=== PATIENT | male | born 1960 | race Caucasian/White ===

== ENCOUNTER 2020-05-23 07:31 | Emergency (ER) | payer BC, SELFPAY ==
--- NOTE | ~2020-05-23 | XR_ITS ---
EXAMINATION: XR chest 1V portable DATE: 05/23/2020 08:22 INDICATION: Shortness of breath. Cough. TECHNIQUE: A single frontal view of the chest was obtained. COMPARISON: None. FINDINGS: The lungs are hyperexpanded with lucencies, consistent with emphysema. The chest demonstrat es clear lungs without pneumonia, pleural effusion, or pneumothorax. The heart size is normal. IMPRESSION: 1. Emphysema. Reviewed, dictated and finalized at location A. IMPRESSION: 1. Emphysema.
[2020-05-23 07:38] VITALS: BP 177/84; PULSE 75; RESP 18; TEMP 36.5; O2SAT 95
[2020-05-23 07:50] VITALS: O2SAT 95
--- NOTE | 2020-05-23 07:50 | ECG_ITS ---
Measurements Intervals [facility] Rate: 72 P: 60 KS: 153 QRS: -34 QRSD: 104 T: 69 QT: 399 QTc: 438 Interpretive Statements SINUS RHYTHM POSSIBLE LEFT ATRIAL ENLARGEMENT LEFT AXIS DEVIATION INCOMPLETE RIGHT BUNDLE BRANCH BLOCK BASELINE ARTIFACT- I, AVR, AVL BORDERLINE ECG Electronically Signed On 05-23-2020 8:07:56 CDT by Nelson Finley D.O.
--- NOTE | 2020-05-23 07:52 | ED.GENADULT ---
HPI - General Adult General Chief complaint: Upper Respiratory Infection Stated complaint: URI Time Seen by Provider: 05/23/20 07:44 Source: patient Mode of arrival: ambulatory Limitations: no limitations History of Present Illness HPI narrative: Patient is a 59 y/o male complaining of SOB for 1 week. He states that initially his SOB was mild, but this morning he was severely shortness of breath. He has been having running nose, congestion and dry cough for 1 week. He also had some chest tightness and sweating this morning. He felt like he was going to pass out, but did not actually pass out. He denies any fever. Related Data Home Medications Medication Instructions Recorded Confirmed lisinopril 20 mg tablet 40 mg PO DAILY tablet 10/29/19 terazosin 2 mg capsule 2 mg PO DAILY 10/29/19 verapamil 240 mg 24 hr 240 mg PO BID cap 10/29/19 capsule,extended release Allergies Allergy/AdvReac Type Severity Reaction Status Date / Time bacitracin Allergy Unknown rash Verified 05/23/20 07:42 neomycin Allergy Unknown Rash Verified 05/23/20 07:42 polymyxin B Allergy Unknown Rash Verified 05/23/20 07:42 Review of Systems Constitutional: Constitutional: Denies chills, Reports excessive sweating, Denies fever(s), Denies headache(s) and Reports weakness Eyes: Eyes: Denies blurry vision ENT: Denies headache(s), Reports nasal congestion, Reports nasal discharge and Denies neck pain Cardiovascular: Cardiovascular: Reports chest pain and Reports dyspnea Respiratory: Respiratory: Reports cough and Reports dyspnea Gastrointestinal: Gastrointestinal: Denies abdominal pain, Denies diarrhea, Denies nausea and Denies vomiting Genitourinary: Genitourinary: Denies hematuria and Denies dysuria Musculoskeletal: Musculoskeletal: Denies back pain and Denies neck pain Neurologic: Denies headache(s) and Denies weakness [facility] Past Medical History Medical History BPH loc w urin obs/LUTS HTN (hypertension), benign Surgical History Surgical History History of back surgery Family History Family History Father Heart disease Father Patient's father is Acute myocardial infarction Social History Social History Smoking packs per day: 1 Smoking cigarettes per day: 20.0 Years smoked: 40 Smoking pack-years: 40.00 Smoking status: Current every day smoker Tobacco type: cigarettes Second hand tobacco smoke exposure: Yes Alcohol intake: current Drinks per week: 20 Substance use: never Substance use type: does not use 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 Gender identity (if verbalized by the patient): Male Exam Const: General: no acute distress and well developed Orientation/consciousness: oriented to person, oriented to place, oriented to time and patient oriented x3 HENMT: Head: normocephalic Ears: external ears normal General nose exam: Normal external nose present Eyes: General: appearance normal, both eyes and all related structures Conjunctivae: conjunctivae normal Neck: Neck: normal visual inspection and full ROM Chest: Chest palpation & inspection: normal inspection of the chest and no tenderness Resp: Effort & Inspection: normal respiratory effort and able to speak in complete sentences Cardio: Rate: regular rate Rhythm: regular rhythm GI: GI Palp: No abdominal tenderness and Yes Soft to palpation Skin: General skin exam: normal color and turgor normal Neuro: General: oriented to person, oriented to place, oriented to time and patient oriented x3 Cognition (Neuro): normal cognition Extrem: General: normal to inspection, full ROM and no pedal edema Psych: Appearance: grossly normal Mental Status: mental status grossly normal Affect: norm
[2020-05-23 08:15] LABS: Basophils Percent Auto 0.1 % (0.2-1.2); Eosinophils Percent Auto 0.1 % (0-4.4); Hematocrit 45.1 % (42.0-52.0); Hemoglobin 16.7 g/dL (14.0-18.0); Immature Granulocyte Absolute 0.03 K/mm3 (0.00-0.031); Immature Granulocyte Percent A 0.4 % (0-0.5); Lymphocytes Absolute Auto 1.05 K/mm3 (0.9-3.2); Lymphocytes Percent Auto 13.6 % (18.3-44.2); Mean Corpuscular Hemoglobin 33.7 pg (26-34); Mean Corpuscular Volume 90.9 fl (80-100); Mean Platelet Volume 8.8 fl (7.4-10.4); Monocytes Absolute Auto 0.5 K/mm3 (0.1-0.6); Monocytes Percent Auto 6.1 % (2.6-8.5); Neutrophils Absolute Auto 6.1 K/mm3 (1.3-6.7); Neutrophils Percent Auto 79.7 % (45.5-73.1); Platelet Count Result 271 k/mm3 (150-375); Red Blood Count 4.96 M/mm3 (4.6-6.20); Red Cell Distribution Width 12.1 % (11.5-14.5); White Blood Count 7.7 K/mm3 (4.5-10.0)
[2020-05-23 08:36] LABS: Alanine Aminotransferase 18 U/L (4-50); Albumin Level 4.6 g/dL (3.5-5.1); Alkaline Phosphatase 90 U/L (38-126); Anion Gap 7 mmol/L (8-16); Aspartate Amino Transferase 28 U/L (17-59); Bilirubin,Total 0.5 mg/dL (0.2-1.3); Blood Urea Nitrogen 11 mg/dL (9-20); Calcium 9.1 mg/dL (8.4-10.2); Carbon Dioxide 24 mmol/L (22-30); Chloride 99 mmol/L (98-107); Estimated CRCL calculation 86 ml/min; Estimated Glomerular Filt Rate > 60; Glucose 157 mg/dL (75-110); Potassium 4.3 mmol/L (3.4-5.0); Sodium 130 mmol/L (137-145)
[2020-05-23 08:47] LABS: NT Pro B Type Natriuretic Pept 177 PG/ML (5-100); Troponin I < 0.012 ng/mL (0.000-0.034)
[2020-05-23] MEDS: SODIUM CHLORIDE 0.9% IV 1,000 ML 999 ML IV CONT (09:56)
[2020-05-23] MEDS: ALBUTEROL SULFATE (*SP) AEROSOL 1 PUFF 2 PUFF INHALATION (09:59)
[2020-05-23 10:34] VITALS: BP 160/85; PULSE 59; RESP 17; O2SAT 95
[2020-05-23 11:38] LABS: D Dimer 0.33 ug/mL (<0.48)
[2020-05-23 12:11] LABS: Troponin I < 0.012 ng/mL (0.000-0.034)
[2020-05-23 12:30] VITALS: BP 154/80; PULSE 66; RESP 18; TEMP 36.6; O2SAT 98
[2020-05-24 12:10] LABS: SARS-CoV-2 RNA PCR Negative
== END 2020-05-23 13:16 | disposition home or self-care (01) ==
PROVIDERS: Emergency Provider Emergency Medicine; PCP Family Medicine
DX: J06.9 Acute upper respiratory infection, unspecified (principal); J44.9 Chronic obstructive pulmonary disease, unspecified; R07.9 Chest pain, unspecified; Z20.828 Contact with and (suspected) exposure to other viral communicable diseases; N40.0 Benign prostatic hyperplasia without lower urinary tract symptoms; F17.210 Nicotine dependence, cigarettes, uncomplicated; I45.10 Unspecified right bundle-branch block; R94.31 Abnormal electrocardiogram [ECG] [EKG]
CPT/HCPCS: 36415; 71045; 80053; 83880; 84484; 85025; 85380; 87635; 93005; 96360; 96361; 99284; A9270; C9803; J7030; U0003

== ENCOUNTER → 2021-10-27 07:18 | Outpatient (CLI) | payer BC, SELFPAY ==
[2021-10-27 14:23] LABS: Influenza A QL RT-PCR Negative (Negative); Influenza B QL RT-PCR Negative (Negative)
[2021-10-27 21:12] LABS: SARS-CoV-2 RNA PCR Negative
== END ==
PROVIDERS: PCP Family Medicine; Visit Provider Physician Assistant
DX: R05.9 Cough, unspecified (principal); R09.89 Other specified symptoms and signs involving the circulatory and respiratory systems; Z20.822 Contact with and (suspected) exposure to COVID-19
CPT/HCPCS: 87502; C9803; U0003; U0005

== ENCOUNTER 2023-01-09 07:28 | Outpatient (CLI) | payer BC, SELFPAY ==
--- NOTE | ~2023-01-09 | XR_ITS ---
EXAMINATION: XR chest 2V DATE: 01/09/2023 07:49 INDICATION: Productive cough and shortness of breath TECHNIQUE: PA and lateral views of the chest are obtained. COMPARISON: 05/23/2020 FINDINGS: The lungs are free of acute opacities. No pleural effusion or pneumothorax. The cardiomedia stinal silhouette is normal. There is mild thoracic spondylosis. IMPRESSION: 1. No acute cardiopulmonary abnormality. Reviewed, dictated and finalized at location L.
== END 2023-01-09 07:29 | disposition home or self-care (01) ==
LOC: ANHIMG 07:32
PROVIDERS: PCP Family Medicine; Visit Provider Physician Assistant
DX: R05.9 Cough, unspecified (principal)
CPT/HCPCS: 71046

== ENCOUNTER 2023-10-05 07:04 | Outpatient (CLI) | payer OTHER, SELFPAY ==
[2023-10-05 08:04] LABS: Influenza A QL RT-PCR Negative (Negative); Influenza B QL RT-PCR Negative (Negative); RSV RNA, RT-PCR Negative (Negative); SARS-CoV-2 RNA PCR Positive (Negative)
== END 2023-10-05 07:05 | disposition home or self-care (01) ==
PROVIDERS: PCP Family Medicine; Visit Provider Physician Assistant Medical
DX: U07.1 COVID-19 (principal); R05.9 Cough, unspecified; R50.9 Fever, unspecified
CPT/HCPCS: 87637

== ENCOUNTER 2024-10-06 08:34 | Outpatient (CLI) | payer OTHER, SELFPAY ==
--- NOTE | 2024-10-06 08:54 | ECG_ITS ---
Test Date: 2024-10-06 08:59:47 Measurements Intervals [facility] Rate: 85 P: 69 MN: 159 QRS: 27 QRSD: 109 T: 78 QT: 394 QTc: 469 Interpretive Statements SINUS RHYTHM POSSIBLE LEFT ATRIAL ENLARGEMENT [-0.1mV P-WAVE IN V1/V2] No previous ECG available for comparison Electronically Signed On 10-06-2024 18:13:52 YARDAGE CONTROL OPERATOR by Shelia Staley M.D.
== END 2024-10-06 08:35 | disposition home or self-care (01) ==
PROVIDERS: PCP Family Medicine; Visit Provider Podiatrist Foot & Ankle Surgery
DX: Z01.818 Encounter for other preprocedural examination (principal); I10 Essential (primary) hypertension
CPT/HCPCS: 93005

== ENCOUNTER 2025-02-03 07:56 | Outpatient (CLI) | payer OTHER, SELFPAY ==
--- NOTE | ~2025-02-03 | US_ITS ---
Ultrasound of the Abdominal Aorta INDICATION: Nicotine dependence, screening for abdominal aortic aneurysm TECHNIQUE: Grayscale, color Doppler, and pulsed Doppler images of the aorta and common iliac arteries were obtained. COMPARISON: None. FINDINGS: Maximum vascular dimensions are as follows: Proximal aorta: 2.1 cm Mid aorta: 1.7 cm Distal aorta: 1.5 cm Right common iliac artery: 0.6 cm Left common iliac artery: 0.6 cm There is no evidence of abdominal aortic aneurysm. IMPRESSION: No evidence for abdominal aortic aneurysm. Reviewed, dictated and finalized at location M.
--- NOTE | ~2025-02-03 | CT_ITS ---
CT Scan of the Chest without Contrast: Clinical Indication: Lung cancer screening, nicotine dependence Technique: Contiguous sections were acquired throughout the chest without intravenous contrast. Dose reduction technique was used on this scan by utilizing automated exposure control and iterative recon struction technique. The dose-length product (DLP) was 76.94 mGy-cm. Findings: There is no evidence of any significant mediastinal, hilar or axillary lymphadenopathy. Coronary calc ifications are present. There is no evidence of pleural or pericardial effusion. There is moderate emphysema and biapical scarring. No suspicious pulmonary nodule. Images through the upper abdomen reveal no abnormalities. Impression: Lung RADS 1: Negative. 12 month follow-up screening CT advised. Reviewed, dictated and finalized at location . Impression: Lung RADS 1: Negative. 12 month follow-up screening CT advised.
--- OUTSIDE RECORDS SUMMARY | 2025-02-03 08:03 | XMS_ITS | Clinical Summary ---
Author Organization [facility] Address Counts include 234 beds at the [facility] [place] [address] Care Team Providers Care Applications Support Analyst Name Role Phone Jame Lyles MD Primary Care Provider [phone] Antonio Rowland MD Unavailable [phone] Allergies Active Allergy Reactions Criticality Noted Date Comments Bacitracin Rash Low 09/01/2015 Neomycin Unknown 05/03/2018 Bacitracin-Polymyxin B Unknown 05/03/2018 Medications aspirin 81 MG tablet Take 1 tablet (81 mg total) by mouth daily. 8 Active zoster vaccine (SHINGRIX) injectionIndicat ions:Need for shingles vaccine One dose now, repeat in 2-6 months 0.5 mL 1 9 Active TERAZOSIN 2 MG capsuleIndicatio ns:Essential hypertension TAKE 1 CAPSULE BY MOUTH AT BEDTIME 90 capsule 3 9 Active verapamil SR 240 MG tabletIndication s:Essential hypertension Take 1 tablet (240 mg total) by mouth 2 (two) times daily. 180 tablet 3 0 Active lisinopril 20 MG tabletIndication s:Essential hypertension Take 2 tablets (40 mg total) by mouth daily. Patient MUST be seen for further refills 14 tablet 1 Active Additional Information Patient not taking.Reported on 12/10/2023 budesonide (PULMICORT) 0.5 MG/2ML nebulizer solution Add 1 vial to 250ml of saline in rinse bottle. Irrigate sinuses with 120ml through each nostril twice daily 3 Active ciprofloxacin (CILOXAN) 0.3 % ophthalmic solution 3 Active hydroCHLOROthiaz danny (HYDRODIURIL) 25 MG tablet Take 1 tablet (25 mg total) by mouth daily. Active ipratropium (ATROVENT) 0.03 % nasal spray 3 Active ketorolac (ACULAR) 0.5 % ophthalmic solution 3 Active prednisoLONE acetate (PRED FORTE) 1 % ophthalmic suspension 3 Active lisinopril (PRINIVIL) 40 MG tablet Take 1 tablet (40 mg total) by mouth daily. 3 Active albuterol sulfate HFA 108 (90 Base) MCG/ACT inhaler Inhale 2 puffs into the lungs every 4 (four) hours as needed. 4 Active BREO ELLIPTA 200-25 MCG/ACT inhaler Inhale 1 puff into the lungs daily. 4 Active losartan (COZAAR) 25 MG tablet Take 1 tablet (25 mg total) by mouth daily. 4 Active Active Problems Problem Noted Date Diagnosed Date Tobacco abuse 08/12/2018 Lumbar disc herniation 08/10/2015 Lumbar stenosis 08/10/2015 Acquired hallux rigidus of right foot 07/21/2015 Pes cavus 06/23/2015 Enlarged prostate without lo wer urinary tract symptoms (luts) 12/15/2014 Essential hypertension Immunizations Immunization Administration Dates Next Due Influenza (Generic) 07/21/2016,08/06/2015,2013 Influenza Adult (Generic) 08/01/2019,07/02/2018, 08/04/2017 Shingrix 08/01/2019 Family History Medical History Relation Comments Hypertension Brother 1 Heart Attack Father Heart Disease Father Stent Cardiac Father Alzheimer's disease Maternal Grandmother Hypertension Maternal Grandmother Relation Status Comments Brother 1 Alive Brother 2 Alive Father (Age 59) Maternal Grandfather Maternal Grandmother Mother Alive Paternal Grandfather Paternal Grandmother Social History Tobacco Use Types Packs/Day Years Used Date Smoking Tobacco: Every Day Cigarettes Smokeless Tobacco: Never Tobacco Cessation:Ready to Q uit: No Alcohol Use Standard Drinks/Week Comments Yes 11.7 (1 standard drink = 0.6 oz pure alcohol) AUDIT-C Answer Date Recorded Frequency of Alcohol Consumption 4 or more times a week 06/02/2019 Average Number of Drinks 5 or 6 019 Frequency of Binge Drinking Weekly 05/09 PHQ-2 Answer Date Recorded Patient Health Questionnaire-2 Score 0 12/10/2023 Sex and Gender Information Value Date Recorded Sex Assigned at Male 09/05/2018 10:07 AM WIRELESS COMMUNICATIONS ENGINEER Legal Sex Male 5:52 PM CDT Gender Identity Male 09/05/2018 10:07 AM WIRELESS COMMUNICATIONS ENGINEER Sexual Orientation Straight 09/05/2018 10 :07 AM WIRELESS COMMUNICATIONS ENGINEER 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 Not on file Not on file Not on file Last Filed Vital Signs Vital Sign Reading Time Taken Comments Blood Pressure 138/80 03/10/2024 10:56 AM CDT Pulse 66 03/10/2024 10:56 AM CDT Temperature - - Respiratory Rate 18 06/02/2019 8:40 AM CDT Oxygen Saturation 99% 03/10/2024 10:56 AM CDT Inhaled Oxygen Concentration - - Weight 61.7 kg (136 lb) 03/10/2024 10:56 AM CDT Height 177.8 cm (5' 10 ) 06/02/2019 8:40 AM CDT Body Mass Index 19.51 06/02/2019 8:40 AM CDT Plan of Treatment Health Maintenance Due Date Last Done Comments Hepatitis C 1976 DTaP, Tdap and Td Vaccines (1 - Tdap) 1977 Pneumococcal Vaccine: 50+ Years (2 of 2 - PCV) 07/29/2021 07/29/2020 AAA SCREENING 2023 Annual Medicare Wellness Visit 2023 COVID-19 Vaccine ( season) 2024 08/02/2022, 09/09/2021, 12/28/2020, Additional history exists PHQ-2 (Physician [place]) 10/08/2024 12/10/2023 Colorectal Cancer Screening Colonoscopy (10 Years) 01/28/2029 01/28/2019 RSV Immunization or 60+ Years (1 - 1-dose 75+ series) 2033 Zoster Vaccines Completed 11/12/2019, 08/01/2019 Meningococcal B Vaccine Aged Out No l onger eligible based on patient's age to complete this topic Meningococcal Vaccine Aged Out No karina malgorzata eligible based on patient's age to complete this topic RSV Immunizations Under 20 Months Aged Out No longer eligible based on patient's age to complete this topic Procedures Procedure Name Priority Date/Time Associated Diagnosis Comments COLONOSCOPY GENERIC (SCAN ORDER) Routine 01/28/2019 from Last 3 Months or Most Recently Relevant to Health Maintenance Results * COLONOSCOPY (01/28/2019) us Documents Scanned SCANNING Final Result [facility] [address] [place] [address] from Last 3 Months or Most Recently Relevant to Health Maintenance Insurance [employer] Care Teams Applications Support Analyst Relationship Specialty Start Date End Date Jame Lyles MD [address] [place] [address] PCP - General 04/26/15 Antonio Rowland MD [facility]. [facility] [address] [place] [address] [place] Biomedical Engineering Director INTERVENTIONAL CARDIOLOGY 04/24/18
--- OUTSIDE RECORDS SUMMARY | 2025-02-03 08:03 | XMS_ITS | Encounter Summary ---
Author Organization [facility] Address [address] [place] [address] Care Team Providers Care Lead Mason Tender Name Role Phone Jame Lyles MD Primary Care Provider [phone] Antonio Rowland MD Unavailable [phone] Encounter Details Date Type Department Care Team (Late st Contact Info) Description 08/11/2017 Abstract NATHALIA CONVERSION [facility] [place], [place] [id number] , Generic ConversionMD Social History Tobacco Use Types Packs/Day Years Used Date Smoking Tobacco: Never Assessed Sex and Gender Information Value Date Recorded Sex Assigned at Male 09/05/2018 10:07 AM TRAVELING SALES REPRESENTATIVE Legal Sex Male 5:52 PM CDT Gender Identity Male 09/05/2018 10:07 AM TRAVELING SALES REPRESENTATIVE Sexual Orientation Straight 09/05/2018 10 :07 AM TRAVELING SALES REPRESENTATIVE documented as of this encounter Plan of Treatment Not on file documented as of this encounter Visit Diagnoses Not on filedocumented in this encounter Care Teams Lead Mason Tender Relationship Specialty Start Date End Date Jame Lyles MD [address] [place] [address] PCP - General 04/26/15 Antonio Rowland MD [facility]. [address] [place], [place] [id number] [place] [employer] INTERVENTIONAL CARDIOLOGY 04/24/18 documented as of this encounter
--- OUTSIDE RECORDS SUMMARY | 2025-02-03 08:03 | XMS_ITS | Patient Health Record ---
Author Organization [facility] ([address]) Address [address] [place] [address] Care Team Providers Care Endodontist Name Role Phone Robbin Thompson MD Primary Care Provider UnavailSangeeta Moncada Unavailable [phone] [facility], Provider Unavailable Unavailab le Allergies Allergen (clinical drug ingredient) Drug/Non Drug Allergy documented on EMR Reaction Allergy Type Onset Date Status neomycin Neomycin eye swelling after surgery Drug Allergy Active Results Component Value Reference Range Notes Spirometry Reviewed date: Interpretation:Abnormal Performing Lab: Notes/Report: Abnormal SpiroPreBronchodilator_FVC 2.88 SpiroPostBronchodilator_FEF25_75 0 SpiroPreBronchodilator_FEF25_75 1.84 SpiroPreBronchodilator_FEV1 2.17 SpiroPrecentPredictionPost_FEF25_75 0 SpiroPrecentPredictionPost_FEV1 0 SpiroPrecentPredictionPost_FEV1_OVER_FVC 0 SpiroPrecentPredictionPost_FVC 0 SpiroPrecentPredictionPre_FEF25_75 57.5 SpiroPrecentPredictionPre_FEV1 62.7 SpiroPrecentPredictionPre_FEV1_OVER_FVC 96.9 SpiroPrecentPredictionPre_FVC 64.7 SpiroPredicted_FEF25_75 3.2 SpiroPreBronchodilator_FEV1_OVER_FVC 75.29 SpiroPreBronchodilator_PEF 3.69 SpiroPostBronchodilator_FVC 0 SpiroPostBronchodilator_FEV1 0 SpiroPostBronchodilator_FEV1_OVER_FVC 0 SpiroPostBronchodilator_PEF 0 SpiroPredicted_FVC 4.45 SpiroPredicted_FEV1 3.46 SpiroPredicted_FEV1_OVER_FVC 77.67 SpiroPredicted_PEF 8.17 Reason For Referral Reason J31.0 Referring Provider First Name Robbin Referring Provider Last Name Jay Referring Provider Speciality Counts include 234 beds at the [facility] Referred Organization [facility] Referred Provider Sangeeta Valentin Referred Address [address],[place], [place],[address],[place] Referred Provider Specialty Allergy/Immu nology Referral Priority Routine Medications Medication SIG (Take, Route, Frequency, Duration) Notes Start Date End Date Status Advair Diskus 500-50 MCG/ACT 1 puff Inhalation Twice a day for 30 days 12/25/2024 Active AZELASTINE NASAL 137 mcg/inh 2 spray(s) intranasally 2 times a day for 30 days Active IPRATROPIUM NASAL 42 mcg/inh 2 spray(s) intranasally 4 times a day for 30 days Active Breo Ellipta 200 MCG-25 MCG/INH 1 PUFF(S) INHALED ONCE A DAY for 30 DAYS *Please review and pick correct strength-formula tion from [email or web address] options. If intended option is not shown, discontinue and re-order from Quick Search* Not-Taking Trelegy Ellipta 200-62.5-25 MCG/ACT 1 puff Inhalation Once a day for 30 days 12/10/2024 Active Breo Ellipta 200-25 MCG/ACT 1 puff Inhalation Once a day for 30 days 12/10/2024 Active Aspirin 81 MG 1 tab(s) orally once a day Active Albuterol Sulfate HFA 108 (90 Base) MCG/ACT 2 puffs as needed Inhalation every 4 hrs for 30 days 12/10/2024 Active hydroCHLOROthiazide 25 MG 1 tab(s) orally once a day Active Azelastine HCl 137 MCG/SPRAY 2 spray(s) intranasally 2 times a day for 30 days Active Albuterol Sulfate HFA 108 (90 Base) MCG/ACT 2 puff(s) inhaled every 6 hours Active Ipratropium [place] 0.06 % 2 spray(s) intranasally 4 times a day for 30 days 11/27/2023 Active Terazosin HCl 2 MG 1 cap(s) orally once a day (at bedtime) Active Verapamil HCl ER 240 MG 1 cap(s) orally once a day Active Social History Tobacco Use: Social History Observation Description Date Details (start date - stop date) Current Smoker NA - NA Tobacco Control (Standard) Question Answer Notes Tobacco use: Current smoker How often do you smoke cigarettes? Every day How many cigarettes a day do you smoke? 11-20 How soon after you wake up d o you smoke your first cigarette? 6-30 minutes Are you interested in quitting? Not ready to frances t Additional Findings: Tobacco user Modera te cigarette smoker (10-19 cigs/day) Problems Problem Type SNOMED Code ICD Code Onset Dates Problem Status W/U Status Risk Notes Problem Tobacco user (500093023) Nicotine dependence, cigarettes, uncomplicated (F17.210) Active confirmed Problem Chronic rhinitis (60840998) Chronic rhinitis (J31.0) Active confirmed Problem Uncomplicated moderate persistent asthma (107751017) Moderate persistent asthma, uncomplicated (J45.40) Active confirmed Vital Signs Oximetry 99 % 12/10/2024 Blood pressure diastolic 73 mm Hg 12/10/2024 Height 69 in 12/10/2024 Blood pressure systolic 156 mm Hg 12/10/2024 Weight 139.4 lbs 12/10/2024 BMI 20.58 kg/m2 12/10/2024 Encounters Encounter Location Date Provider Diagnosis [address] [address] 03/22/2024 Provider [facility] Chronic rhinitis J31.0 and Moderate persistent asthma, uncomplicated J45.40 [facility] [employer] [address] [address] 12/10/2024 Sangeeta Valentin Chronic rhinitis J31.0 ; Moderate persistent asthma, uncomplicated J45.40 ; Shortness of breath R06.02 and Tobacco use Z72.[address] [address] 12/05/2024 Sangeeta Valentin [address] [address] 12/10/2024 Sangeeta Valentin [facility] [employer] [address] [address] 12/25/2024 Sangeeta Valentin Assessments Encounter Date Diagnosis (ICD Code) Assessment Notes Treatment Notes Treatment Clinical Notes Section Notes 03/22/2024 Chronic rhinitis (ICD-10 - J31.0) 03/22/2024 Moderate persistent asthma, uncomplicated (ICD-10 - J45.40) 12/10/2024 Chronic rhinitis (ICD-10 - J31.0) Skin testing was negative for aeroallergens. We discussed non allergic rhinitis including trigger factors of strong odors and changes in barometric pressure. Continue Astepro 2 sprays BID as needed 12/10/2024 Moderate persistent asthma, uncomplicated (ICD-10 - J45.40) Spirometry at his initial visit showed obstruction with FEV1 57% and significant [id number] post bronchodilator. ACT 14. Today, spirometry continues to show obstruction with FEV1 63%. Start Trelegy and continue prn albuterol. We discussed prednisone, but he does not feel that he needs further steroids at this time. He is scheduled for LDCT for lung cancer screening by PCP 12/10/2024 Shortness of breath (ICD-10 - R06.02) 12/10/2024 Tobacco use (ICD-10 - Z72.0) 12/10/2024 Other Plan Of Treatment Next Appt Details Provider Name:Sangeeta johnston, 03/18/2025 08:45:00 AM, [address] [facility], [address], [place], [address], Insurance Providers Payer Name Payer Address Payer Phone Subscriber Number Group Number Insured Name Patient Relationship to Insured Coverage Start Date Coverage End Date [facility] Medicare Advantage [address] [address] [place] [address] [id number] Og Trotter Self - patient is the insured 4 Medical (General) History Medical History History ICD Code Hypertension Surgical History Surgery Date(Month/Year) back surgery 1997 back surgery 1997 Hospitalization History Reason Date(Month/Year) pneumonia in childhood
--- OUTSIDE RECORDS SUMMARY | 2025-02-03 08:03 | XMS_ITS | Clinical Summary ---
Author Organization [facility] Address [address], [address] [address] Phone Care Team Providers Care Embryology Teacher Name Role Phone Robbin Thompson MD Primary Care Provider Allergies Active Allergy Reactions Criticality Noted Date Comments Neomycin-Bacitracin Zn-Polymyx Rash 10/04 Medications VERAPAMIL HCL PO Take 240 mg by mouth 2 times daily. Active lisinopril (PRINIVIL, ZESTRIL) 20 MG TabletIndication s:takes 2 tabs in AM Take 20 mg by mouth every morning. Indications : takes 2 tabs in AM Active aspirin EC 81 MG Tablet Delayed Response Take 81 mg by mouth daily. Active TERAZOSIN HCL PO Take 1 Tab by mouth nightly. Active hydroCHLOROthiaz danny 25 MG Tablet Take 25 mg by mouth every morning. Active other 1 Tablet by Other route daily. FIBER GUMMY Active Active Problems No known active problems Family History Medical History Relation Name Comments Heart Attack Father No Known Problems Mother Cancer Paternal Great-Grandfather c olon Relation Name Status Comments Father Mother Alive Paternal Great-Grandfather Social History Tobacco Use Types Packs/Day Years Used Date Smoking Tobacco: Every Day Cigarettes 1 30 Smokeless Tobacco: Never Tobacco Cessation:Ready to Q uit: No; Counseling Given: Yes Alcohol Use Standard Drinks/Week Comments Yes 20 (1 standard drink = 0.6 oz pu re alcohol) Sex and Gender Information Value Date Recorded Sex Assigned at Not on file Legal Sex Male 9:06 PM CDT Gender Identity Not on file Sexual Orientation Not on file Last Filed Vital Signs Vital Sign Reading Time Taken Comments Blood Pressure 133/78 05/24/2022 10:54 AM CDT Pulse 65 05/24/2022 10:54 AM CDT Temperature 36 C (96.8 F) 05/24/2022 10:54 AM CDT Respiratory Rate 18 05/24/2022 10:54 AM CDT Oxygen Saturation 99% 05/24/2022 10:54 AM CDT Inhaled Oxygen Concentration - - Weight 63.5 kg (140 lb) 05/24/2022 8:25 AM CDT Height 177.8 cm (5' 10 ) 05/24/2022 8:25 AM CDT Body Mass Index 20.09 05/24/2022 8:25 AM CDT Plan of Treatment Health Maintenance Due Date Last Done Comments Hepatitis C Virus (HCV) Screening 1960 TdaP Immunization 1960 Cologuard 2008 Immunochemical Fecal Occult Blood 2008 Pneumococcal Immunization (50+ years) (2 of 2 - PCV) 07/29/2021 07/29/2020 Influenza Immunization (#1) 06/08/202407/09, 07/29/2020, 08/01/2019, Additional history exists SARS-COV-2 Immunization ( season) 2024 09/09/2021, 12/28/2020, 11/17/2020 Colonoscopy 05/24/2027 05/24/2022, 01/07, 10/22/2018 Colorectal Cancer Screening 05/24/2027 Respiratory Syncytial Virus (RSV) Immunization (Adult) (1 - 1-dose 75+ series) 2033 05/24/2022, 01/07, 10/22/2018 Zoster Immunization Completed 11/12/2019, 9 Pneumococcal Immunization Combined Discontinued 07/29/2020 Hepatitis B Immunization Aged Out No longer eligible based on patient's age to complete this topic Meningococcal Immunization (ACWY) Aged Out No longer eligible based on patient's age to complete this topic Rotavirus Immunization Aged Out No lo nger eligible based on patient's age to complete this topic Insurance [facility] Care Teams Embryology Teacher Relationship Specialty Start Date End Date Robbin Thompson MD [address] [place] [address] PCP - General Family Medicine 05/17/22
--- OUTSIDE RECORDS SUMMARY | 2025-02-03 08:03 | XMS_ITS ---
Author Organization [facility] [place] ([address]) Address [address] [place] [address] Care Team Providers Care Medical Aides Teacher Name Role Phone Robbin Thompson MD Primary Care Provider UnavailSangeeta Moncada Unavailable [phone] REASON FOR VISIT Medication Medications Medication SIG (Take, Route, Frequency, Duration) Notes Start Date End Date Status Advair Diskus 500-50 MCG/ACT 1 puff Inhalation Twice a day for 30 days 12/25/2024 Active Encounters Encounter Location Date Provider Diagnosis [facility] [address] [place] [address] 12/25/2024 Sangeeta Valentin Plan Of Treatment Medication Medication Name Sig Start Date Stop Date Notes Advair Diskus 500-50 MCG/ACT 1 puff Inha lation Twice a day for 30 days 12/25/2024 Next Appt Details Provider Name:Sangeeta johnston, 03/18/2025 08:45:00 AM, [address] [facility], [address], [place], [address], Progress Notes * Og TROTTERDOB:1960 ([age] yo M)Acc No.[id number]:12/25/2024 Patient: Og BALES :1960 A ge:64 Y S ex:Male Address:[address] [place] [address] * Refills Start Advair Diskus Aerosol Powder Breath Activated, 500-50 MCG/ACT, Inhalation, 1, 1 puff, Twice a day, 30 days, Refills=5 * true * Date: Generated for Breanna mendieta/Isacc/Itz on: 0 02/03/2025 08:03 AM CDT
--- OUTSIDE RECORDS SUMMARY | 2025-02-03 08:03 | XMS_ITS ---
Author Organization [facility] [place] ([address]) Address [address] [place] [address] Care Team Providers Care Sales Agent Pest Control Service Name Role Phone Robbin Thompson MD Primary Care Provider Sangeeta Kincaid Unavailable [phone] Allergies Allergen (clinical drug ingredient) Drug/Non Drug [...] 4.45 SpiroPredicted_FEV1 3.46 SpiroPredicted_FEV1_OVER_FVC 77.67 SpiroPredicted_PEF 8.17 REASON FOR VISIT Asthma follow-up - recent flares, off Breo Medications Medication SIG (Take, Route, Frequency, Duration) Notes Start Date End Date Status AZELASTINE NASAL 137 mcg/inh 2 spray(s) intranasally 2 times a day for 30 days Active Ipratropium Circle 0.06 % 2 spray(s) intranasally 4 times a day for 30 days 11/27/2023 Active Terazosin HCl 2 MG 1 cap(s) orally once a day (at bedtime) Active IPRATROPIUM NASAL 42 mcg/inh 2 spray(s) intranasally 4 times a day for 30 days Active Verapamil HCl ER 240 MG 1 cap(s) orally once a day Active Breo Ellipta 200 MCG-25 MCG/INH 1 PUFF(S) INHALED ONCE A DAY for 30 DAYS *Please review and pick correct strength-formula tion from [employer] options. If intended option is not shown, discontinue and re-order from Quick Search* Not-Taking Aspirin 81 MG 1 tab(s) orally once a day Active hydroCHLOROthiazide 25 MG 1 tab(s) orally once a day Active Azelastine HCl 137 MCG/SPRAY 2 spray(s) intranasally 2 times a day for 30 days Active Albuterol Sulfate HFA 108 (90 Base) MCG/ACT 2 puff(s) inhaled every 6 hours Active Trelegy Ellipta 200-62.5-25 MCG/ACT 1 puff Inhalation Once a day for 30 days 12/10/2024 Active Albuterol Sulfate HFA 108 (90 Base) MCG/ACT 2 puffs as needed Inhalation every 4 hrs for 30 days 12/10/2024 Active Social History Tobacco Use: Social History [...] user Modera te cigarette smoker (10-19 cigs/day) Vital Signs Blood pressure systolic 156 mm Hg 12/11/19 25 Blood pressure diastolic 73 mm Hg 025 Height 69 in 12/10/2024 Weight 139.4 lbs 12/10/2024 BMI 20.58 kg/m2 12/10/2024 Oximetry 99 % 12/10/2024 Encounters Encounter Location Date Provider Diagnosis [facility] [address] [facility] [address] [place] [address] 12/10/2024 Sangeeta Valentin Chronic rhinitis J31 .0 ; Moderate persistent asthma, uncomplicated J45.40 ; Shortness of breath R06.02 and Tobacco use Z72.0 Assessments Encounter Date Diagnosis (ICD Code) Assessment Notes Treatment Notes Treatment Clinical Notes Section Notes 12/10/2024 Chronic rhinitis (ICD-10 - J31.0) Skin testing was negative for aeroallergens. We discussed non allergic rhinitis including trigger factors of strong odors and changes in barometric pressure. Continue Astepro 2 sprays BID as needed 12/10/2024 Moderate persistent asthma, uncomplicated (ICD-10 - J45.40) Spirometry at his initial visit showed obstruction with FEV1 57% and significant [id number] post bronchodilator. ACT 14. Today, spirometry continues [...] - Z72.0) 12/10/2024 Other Plan Of Treatment Medication Medication Name Sig Start Date Stop Date Notes AZELASTINE NASAL 137 mcg/inh 2 spray(s) intranasally 2 times a day for 30 days IPRATROPIUM NASAL 42 mcg/inh 2 spray(s) intranasally 4 times a day for 30 days Trelegy Ellipta 200-62.5-25 MCG/ACT 1 puff Inhalation Once a day for 30 days 12/10/2024 Albuterol Sulfate HFA 108 (9 0 Base) MCG/ACT 2 puffs as needed Inhalation every 4 hrs for 30 days 12/10/2024 Treatment Notes Assessment Notes Chronic rhinitis Skin testing was neg ative for aeroallergens. We discussed non allergic rhinitis including trigger factors of strong odors and changes in barometric pressure. Continue Astepro 2 sprays BID as needed Moderate persistent asthma, uncomplicate d Spirometry at his initial visit showed obstruction with FEV1 57% and significant [id number] post bronchodilator. ACT 14. Today, spirometry continues to show obstruction with FEV1 63%. Start Trelegy and continue prn albuterol. We discussed prednisone, but he does not feel that he needs further steroids at this time. He is scheduled for LDCT for lung cancer screening by PCP Next Appt Details Follow Up: 3 Months, Reason: Spirometry/Flow Volume Loop Provider Name:Sangeeta johnston, 03/18/2025 08:45:00 AM, [address] [facility], [address], [address], Progress Notes * Og TROTTERDOB:1960 ([age] yo M)Acc No.[id number]:12/10/2024 Progress Notes Patient: Og BALES Provider: Elenita Valentin MD :1960 A ge:64 Y S ex:Male Date:12/10/2024 Address:[address] [place], [place] [id number] Pcp:Robbin Thompson MD Subjective: * Chief Complaints: * A sthma follow-up - recent flares, off Breo * HPI: * Introduction: I had the pleasure of seeing Michlel Trotter, a 64 year old with HTN, ARC, and asthma p resenting for evaluation of asthma flare.? He is alone for today's visit. He was last evaluated 11-27-2023. ACT 14 and reports coughing, shortness of breath. He was treated with prednisone by Dr. Thompson a few weeks ago along [place]. He is feeling better, but cough is not resolved. Cough is productive of clear sputum. Also reports constant rhinorrhea. He ran out of Breo several months ago. He feels that the Breo helps out the cough. He is using albuterol twice a day. At his initial visit, he reported frequent rhinorrhea and cough. No post nasal drip or congestion. Above symptoms are occurring throughout the year without regard to season. No decrease in sense of smell. No recurrent sinusitis. He has cleaned the air ducts in his home without improvement. He has tried Zyrtec and Reina without improvement. He also tried Flonase. He was evaluated by ENT and does not remember the name of the ENT. Per his report, normal exam and started ipratropium 2 sprays BID and budesonide nasal rinses every other day with some improvement, No history of prednisone or hospitalization for respiratory symptoms. 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 Today, he reports no fevers, chills, night sweats or other constitutional symptoms,. * ROS: A LLERGY: Positive p er the HPI and history, otherwise unremarkable.? S PECIAL SENSES: Positve for n one. C ONSTITUTIONAL: Positive for n one. E NT: Positive p er the HPI and history, otherwise unremarkable.? R ESPIRATORY: Positive p er the HPI and history, otherwise unremakable.? O PHTHALMOLOGY: Positive for p er the HPI and history, otherwise unremarkable. E NDOCRINOLOGY: Positive for n one. C ARDIOLOGY: Positive for n one. G ASTROENTEROLOGY: Positive for n one. U ROLOGY: Positive for n one. D ERMATOLOGY: Positive for p er the HPI and history, otherwise unremakable. N EUROLOGY: Positive for n one. H EMATOLOGY/LYMPH: Positive for n one. M USCULOSKELETAL: Positive for n one. P SYCHOLOGY: Positive for n one. A ll other review of systems per the HPI and history, otherwise unremarkable. * Medical History: * Surgical History: b ack surgery 1997back surgery 1997 * Hospitalization/Major Diagno stic Procedure: p neumonia in childhood * Family History: F ather: , diagnosed with Allergic rhinitis due to allergen. M other: alive. 2 brother(s) - healthy. 1 son(s) , 1 daughter(s) - healthy. . * Social History: H ome description Basement: Y es Any water damage in basement? N o Do you own any pets? N o T obacco Control (Standard) Tobacco use: C urrent smoker How often do you smoke cigarettes? E very day How many cigarettes a day do you smoke? 1 1-20 How soon after you wake up do you smoke your first cigarette??6-30 minutes Are you interested in quitting? N ot ready to quit Additional Findings: Tobacco user M oderate cigarette smoker (10-19 cigs/day) * Medications: T akingAzelastine HCl 137 MCG/SPRAY Solution 2 spray(s) intranasally 2 times a day Albuterol Sulfate HFA 108 (90 Base) MCG/ACT Aerosol Solution 2 puff(s) inhaled every 6 hours Aspirin 81 MG Tablet Delayed Release 1 tab(s) orally once a day hydroCHLOROthiazide 25 MG Tablet 1 tab(s) orally once a day Terazosin HCl 2 MG Capsule 1 cap(s) orally once a day (at bedtime) Verapamil HCl ER 240 MG Capsule Extended Release 24 Hour 1 cap(s) orally once a day Ipratropium Circle 0.06 % Solution 2 spray(s) intranasally 4 times a day Taking Azelastine HCl 137 MCG/SPRAY Solution 2 spray(s) intranasally 2 times a day Taking Albuterol Sulfate HFA 108 (90 Base) MCG/ACT Aerosol Solution 2 puff(s) inhaled every 6 hours Taking Aspirin 81 MG Tablet Delayed Release 1 tab(s) orally once a day Taking hydroCHLOROthiazide 25 MG Tablet 1 tab(s) orally once a day Taking Terazosin HCl 2 MG Capsule 1 cap(s) orally once a day (at bedtime) Taking Verapamil HCl ER 240 MG Capsule Extended Release 24 Hour 1 cap(s) orally once a day Taking Ipratropium Circle 0.06 % Solution 2 spray(s) intranasally 4 times a day Not-Taking/PRNBreo Ellipta 200 MCG-25 MCG/INH POWDER 1 PUFF(S) INHALED ONCE A DAY , Notes to Pharmacist: *Please review and pick correct strength-formulation from [employer] options. If intended option is not shown, discontinue and re-order from Quick Search*Medication List reviewed and reconciled with the patientNot-Taking/PRN Breo Ellipta 200 MCG-25 MCG/INH POWDER 1 PUFF(S) INHALED ONCE A DAY , Notes to Pharmacist: *Please review and pick correct strength-formulation from [employer] options. If intended option is not shown, discontinue and re-order from Quick Search*Medication List reviewed and reconciled with the patient * Allergies: N eomycin: eye swelling after surgeryno[Allergies Verified] Objective: * Vitals: B P:156/73mm Hg, HR:72/min, Pulse Oximetry:99%, ACT:14, Ht: 69 in, Wt: 139.4 lbs, BMI:20.58Index. * Examination: G eneral examination: General appearance: p leasant, well-developed, well-nourished. HEENT: c onjunctiva are clear bilaterally, no tenderness to palpation of the sinuses, TM's without evidence of acute infection, turbinates with pink mucosa, clear rhinorrhea is present, no polyps noted, no septal perforation, posterior oropharynx is clear, no tongue swelling, and uvula is midline. Oral cavity: n ormal, no lesions. Neck, thyroid : s upple, non-tender, no anterior cervical lymphadenopathy. Breasts : n ot performed. Heart: R RR, S1-S2, no murmurs, no rubs, no gallops. Lungs: c lear to auscultation and percussion in all lung fulton, no wheezes or crackles. Neurologic exam: u nremarkable. Skin: n ormal, no rash, dermatographism, urticaria, angioedema. Peripheral pulses: n ormal (2+) bilaterally. Back: n ormal. Extremities: n ormal ROM, no clubbing, no cyanosis, no edema. Genitalia: n ot performed. Assessment: * Assessment: 1. M oderate persistent asthma, uncomplicated - J45.40 (Primary) 2 . C hronic rhinitis - J31.0 3 . S hortness of breath - R06.02 4 . T obacco use - Z72.0 Plan: * Treatment: Value Reference Range S piroPreBronchodilator_FVC 2.88 * S piroPreBronchodilator_FEF25_75 1.84 * S piroPreBronchodilator_FEV1 2.17 * S piroPrecentPredictionPre_FEF25_75 57.5 * S piroPrecentPredictionPre_FEV1 62.7 * S piroPrecentPredictionPre_FEV1_OVER_FVC 96.9 * S piroPrecentPredictionPre_FVC 64.7 * S piroPredicted_FEF25_75 3.2 * S piroPreBronchodilator_FEV1_OVER_FVC 75.29 * S piroPreBronchodilator_PEF 3.69 * S piroPredicted_FVC 4.45 * S piroPredicted_FEV1 3.46 * S piroPredicted_FEV1_OVER_FVC 77.67 * S piroPredicted_PEF 8.17 * FEV1 63% and reduced FVC. FV L with increase in curvilinearity. Impression: obstruction and possible restriction Notes: Spirometry at his initial visit showed obstruction with FEV1 57% and significant bdssyhm7qeal post bronchodilator. ACT 14. Today, spirometry continues to show obstruction with FEV1 63%. Start Trelegy and continue prn albuterol. We discussed prednisone, but he does not feel that he needs further steroids at this time. He is scheduled for LDCT for lung cancer screening by PCP??2.?Chronic rhinitis? Refill AZELASTINE NASAL spray, 137 mcg/inh, 2 spray(s), intranasally, 2 times a day, 30 days, 1, Refills 5;?Start IPRATROPIUM NASAL spray, 42 mcg/inh, 2 spray(s), intranasally, 4 times a day, 30days, 1, Refills 5.?? Notes: Skin testing was negative for aeroallergens. We discussed non allergic rhinitis including trigger factors of strong odors and changes in barometric pressure. Continue Astepro 2 sprays BID as needed?? * Procedure Codes: 9 6160 PT-FOCUSED HLTH RISK [id number] DOC MEDS VERIFIED W/PT OR [id number] RESPIRATORY FLOW VOLUME LOOP * Preventive Medicine: Counseling: M edication instruction: W atch for side effects of prescribed medications, Nasal steroid/antihistamine instruction: avoid septum. E ducation: G ENERAL EDUCATION: Our staff spent an additional 30 minutes in direct contact with the patient educating them on their current diagnoses and proper treatment and prevention of symptoms and the proper use of medications, Our staff discussed pulmonary function testing and results with the patient/family, Our staff formulated an asthma action plan with the patient/family, Our staff reviewed the patient's asthma action plan. P atient education material sent to portal? Y es B P Management: PRE-HYPERTENSIVE FOLLOW-UP PLAN: F ollow-up 1 month REFERRAL TO ALTERNATIVE / PRIMARY CARE PROVIDER: R eferral to general practitioner * Follow Up: 3 Months (Reason: Spirometry/Flow Volume Loop) * Billing Information: * Visit Code: 29920 Office Visit, Est Pt., Level 4. Modifiers: 25 * Procedure Codes: 04324 PT-FOCUSED HLTH RISK ASSMT. G8427 DOC MEDS VERIFIED W/PT OR RE. A4617 Mouthpiece. 92068 RESPIRATORY FLOW VOLUME LOOP. * AGE INSPECTOR Sign off status: Completed true * Provider: Elenita Valentin MD Date: 0 12/10/2024 Generated for Cristali anam/Isacc/eTransmitting on: 0 02/03/2025 08:03 AM CDT History and Physical Notes * HPI (History of Present Illness) Category Sub-Category Detail Notes Category Not es *Introduction I had the pleasure o f seeing Og Trotter, a 64 year old with HTN, ARC, and asthma presenting for evaluation of asthma flare. He is alone for today's visit. He was last evaluated 11-27-2023. ACT 14 and reports coughing, shortness of breath. He was treated with prednisone by Dr. Thompson a few weeks ago along s[place] forman. He is feeling better, but cough is not resolved. Cough is productive of clear sputum. Also reports constant rhinorrhea. He ran out of Breo several months ago. He feels that the Breo helps out the cough. He is using albuterol twice a day. At his initial visit, he reported frequent rhinorrhea and cough. No post nasal drip or congestion. Above symptoms are occurring throughout the year without regard to season. No decrease in sense of smell. No recurrent sinusitis. He has cleaned the air ducts in his home without improvement. He has tried Zyrtec and Reina without improvement. He also tried Flonase. He was evaluated by ENT and does not remember the name of the ENT. Per his report, normal exam and started ipratropium 2 sprays BID and budesonide nasal rinses every other day with some improvement, No history of prednisone or hospitalization for respiratory symptoms. 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 Today, he reports no fevers, chills, night sweats or other constitutional symptoms, Examination Category Sub-Category Detail Notes Category Not es General examination HEENT: conjunctiva are clear bilaterally, no tenderness to palpation of the sinuses, TM's without evidence of acute infection, turbinates with pink mucosa, clear rhinorrhea is present, no polyps noted, no septal perforation, posterior oropharynx is clear, no tongue swelling, and uvula is midline Neck, thyroid : supple, non-tender, no anterior cervical lymphadenopathy Heart: RRR, S1-S2, no murmu rs, no rubs, no gallops Lungs: clear to auscultatio n and percussion in all lung fulton, no wheezes or crackles Abdomen: Extremities: normal ROM, no clubb ing, no cyanosis, no edema General appearance: pleasant, well-devel oped, well-nourished Skin: normal, no rash, alanna matographism, urticaria, angioedema Neurologic exam: unremarkable Oral cavity: normal, no lesions Breasts : not performed Peripheral pulses: normal (2+) bilatera lly Back: normal Genitalia: not performed
--- OUTSIDE RECORDS SUMMARY | 2025-02-03 08:04 | XMS_ITS | Encounter Summary ---
Author Organization [facility] Address [address] [place] [address] Care Team Providers Care Tank Tester Name Role Phone Jame Lyles MD Primary Care Provider [phone] Antonio Rowland MD Unavailable [phone] Encounter Details Date Type Department Care Team (Late st Contact Info) Description 08/13/2018 Abstract [facility] at [address] [address] Breanne Alvarenga MA Social History Tobacco Use Types Packs/Day Years Used Date Smoking Tobacco: Every Day Cigarettes Smokeless Tobacco: Never Alcohol Use Standard Drinks/Week Comments Yes 0 (1 standard drink = 0.6 oz pur e alcohol) Sex and Gender Information Value Date Recorded Sex Assigned at Male 09/05/2018 10:07 AM TEENAGE BABYSITTER Legal Sex Male 5:52 PM CDT Gender Identity Male 09/05/2018 10:07 AM TEENAGE BABYSITTER Sexual Orientation Straight 09/05/2018 10 :07 AM TEENAGE BABYSITTER 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 Labs reviewed at that time AGE BABYSITTER documented in this encounter Plan of Treatment Not on file documented as of this encounter Procedures Procedure Name Priority Date/Time Associated Diagnosis Comments CBC (OUTSIDE LAB) Routine 05/14/2018 PROSTATE SPECIFIC ANTIGEN,TOTAL Routine 05/14/2018 COMPREHENSIVE METABOLIC PANEL Routine 05/14/2018 LIPID PANEL Routine 05/14/2018 HEMOGLOBIN, GLYCOSYLATED Routine 05/14/2018 THYROID STIM HORMONE TSH Routine 05/14/2018 VITAMIN D, 25 OH Routine 05/14/2018 URIC ACID BLOOD Routine 05/14/2018 documented in this encounter Results * HEMOGLOBIN, GLYCOSYLATED (05/14/2018) HGB A1C 4.9 05/14/2018 [facility] Final Result * VITAMIN D, 25 OH (05/14/2018) VITAMIN D 25 HYDROXY S/P/B 36 05/14/2018 [facility] Final Result * THYROID STIM HORMONE, TSH (05/14/2018) TSH 0.89 05/14/2018 [facility] Final Result * PROSTATE SPECIFIC ANTIGEN,TOTAL (05/14/2018) PSA 0.3 05/14/2018 [facility] Final Result * CBC (OUTSIDE LAB) (05/14/2018) WBC 6.9 HGB 16.1 HCT 44.4 PLT 278 05/14/2018 [facility] Abstract LAB-OUTSIDE/ABSTRACTED Final Result * (ABNORMAL) COMPREHENSIVE METABOLIC PANEL (05/14/2018) SODIUM S/P/B 137 POTASSIUM S/P/B 4.4 CO2 26 CHLORIDE S/P/B 101 GLUCOSE 116 mg/dL CALCIUM S/P/B 9.3 BUN 11 CREATININE S/P/B 0.78 0.7 - 1.3 EGFR AFR. AMER. 115 EGFR NON-AFR. AMER. 99(A) <=90 ALKALINE PHOSPHATASE S/P/B 73 ALT 14 AST 20 BILIRUBIN TOTAL S/P/B 0.6 ALBUMIN S/P/B 4.4 3.5 - 5.0 TOTAL PROTEIN S/P/B 6.8 GLOBULIN 2.4 05/14/2018 [facility] Final Result * URIC ACID BLOOD (05/14/2018) URIC ACID 4.4 05/14/2018 [facility] Final Result * LIPID PANEL (05/14/2018) CHOLESTEROL 227 HDL 87 TRIGLYCERIDES 59 NON HDL CHOLESTEROL 140 LDL (CALCULATED) 125 05/14/2018 [facility] Final Result documented in this encounter Visit Diagnoses Not on filedocumented in this encounter Care Teams Tank Tester Relationship Specialty Start Date End Date Jame Lyles MD [address] [place] [address] PCP - General 04/26/15 Antonio Rowland MD [facility]. [address] [place] [address] [employer] Cl[employer] Supervisor INTERVENTIONAL CARDIOLOGY 04/24/18 documented as of this encounter
--- OUTSIDE RECORDS SUMMARY | 2025-02-03 08:04 | XMS_ITS ---
Author Organization [facility] [place] ([address]) Address [address] [facility] [address] [place] [address] Care Team Providers Care Quill Layer Name Role Phone Robbin Thompson MD Primary Care Provider Unavaila Sangeeta Andrade Unavailable [phone] REASON FOR VISIT medication Medications Medication SIG (Take, Route, Frequency, Duration) Notes Start Date End Date Status Breo Ellipta 200-25 MCG/ACT 1 puff Inhalation Once a day for 30 days 12/10/2024 Active Encounters Encounter Location Date Provider Diagnosis [address] [address] 12/10/2024 Sangeeta Valentin Plan Of Treatment Medication Medication Name Sig Start Date Stop Date Notes Breo Ellipta 200-25 MCG/ACT 1 puff Inhal ation Once a day for 30 days 12/10/2024 Next Appt Details Provider Name:Sangeeta johnston, 03/18/2025 08:45:00 AM, [address] [facility], [address], [place], [address], Progress Notes * Og TROTTERDOB:1960 (4 6 yo M)Acc No.[id number]:12/10/2024 Patient: Og BALES :1960 A ge:64 Y S ex:Male Address:[address] [place] [address] [place] [address] * Refills Start Breo Ellipta Aerosol Powder Breath Activated, 200-25 MCG/ACT, Inhalation, 1, 1 puff, Once a day, 30 days, Refills=5 * true * Date: Generated for Breanna mendieta/Isacc/Eusebioitting on: 0 02/03/2025 08:03 AM CDT
== END 2025-02-03 07:57 | disposition home or self-care (01) ==
PROVIDERS: PCP Family Medicine; Visit Provider Physician Assistant
DX: Z12.2 Encounter for screening for malignant neoplasm of respiratory organs (principal); Z87.891 Personal history of nicotine dependence
CPT/HCPCS: 71271; 76706